=== PATIENT | female | born 1985 | race Caucasian/White ===

== ENCOUNTER 2021-01-04 03:59 | Emergency (ER) | payer OTHER ==
[~2021-01-04] VITALS: Ht 157.5 cm; Wt 61.2 kg
[2021-01-04] MEDS ORDERED: BUPRENORPHINE HC2 MG SL (04:10)
== END 2021-01-04 04:50 | disposition home or self-care (01) ==
LOC: ED 03:59
DX: G44.309 Post-traumatic headache, unspecified, not intractable (principal); Z88.0 Allergy status to penicillin; Z79.899 Other long term (current) drug therapy
CPT/HCPCS: 70450; 99284-25

== ENCOUNTER 2021-01-19 19:31 | Emergency (ER) | payer OTHER ==
[~2021-01-19] VITALS: Ht 157.5 cm; Wt 5175.9 kg
[~2021-01-19 19:31] MED LIST: BUPRENORPHINE HC2 MG SL
--- OUTSIDE RECORDS SUMMARY | 2021-01-19 19:34 | XMS ---
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 [facility] has no Care Guidelines for this patient. [facility] (12 MO.) [facility] NOTE: Visits indicate total known visits. ED/UCC VISIT TRACKING (12 MO.) [facility] COMPLAINT: - POSS KIDNEY STONES 01/04/2021 04:01 [facility] TYPE: Emergency COMPLAINT: - ASSULATED DIAGNOSES: - Other [facility] (current) drug therapy - Post-traumatic headache, unspecified, not intractable - Headache, unspecified - Allergy status to penicillin INPATIENT VISIT TRACKING (12 MO.) No inpatient visits to display in this time frame [email or web address]
[2021-01-19] MEDS ORDERED: ZOFRAN4 MG PO (22:22)
[2021-01-19] MEDS ORDERED: CEPHALEXIN500 MG PO (22:22)
== END 2021-01-19 23:20 | disposition home or self-care (01) ==
LOC: ED 19:31
DX: N12 Tubulo-interstitial nephritis, not specified as acute or chronic (principal); Z88.0 Allergy status to penicillin
CPT/HCPCS: 74176; 80053; 81001; 83605; 84703; 85025; 87040; 96374; 96375; 99284-25; A9270; J0696; J2405; J7030

== ENCOUNTER 2023-04-30 02:27 | Emergency (ER) | payer OTHER ==
[~2023-04-30] VITALS: Ht 157.5 cm; Wt 51.7 kg
[~2023-04-30 02:27] MED LIST changes: +CEPHALEXIN500 MG PO; +ZOFRAN4 MG PO
[2023-04-30] MEDS ORDERED: OXYCODONE HCL5 MG PO (02:47)
[2023-04-30] MEDS ORDERED: IBUPROFEN 800 MG TAB PO ONE (03:15)
[2023-04-30 03:47] LABS: BASOPHILS 0.7 % (0-2); EOSINOPHILS 1.6 % (0-6); HEMATOCRIT 29.2 % (35.0-50.0); HEMOGLOBIN 9.4 g/dL (12.0-18.0); LYMPHOCYTES 17.4 % (24-44); MCH 23.1 (27-36); MCHC 32.4 g/dl (30-36); MCV 71.3 fl (81-99); MONOCYTES 8.2 % (0-12); NEUTROPHILS 72.1 % (39-80); PLATELET COUNT 203 K/uL (140-440); RBC 4.09 M/ul (4.3-5.7); RDW 18.2 (10.5-15.0)
[2023-04-30] MEDS ORDERED: DOXYCYCLINE HYCLATE 100 MG CAP PO ONE (04:00)
[2023-04-30 04:01] LABS: ALBUMIN 3.5 g/dL (3.4-5.0); ALBUMIN/GLOBULIN RATIO 0.8 (1.1-2.4); ANION GAP 12.6 (7-21); BILIRUBIN, TOTAL 0.2 ng/dL (0.2-1.0); BUN/CREATININE RATIO 27.77 (6.0-28.6); CALCIUM 8.8 mg/dL (8.5-10.1); CREATININE, SERUM 0.9 mg/dL (0.55-1.02); POTASSIUM 3.6 mmol/L (3.5-5.1); PROTEIN, TOTAL 7.9 g/dL (6.4-8.2)
[2023-04-30] MEDS ORDERED: LACTATED RINGER'S 1,000 ML IV ONE (04:15)
[2023-04-30] MEDS ORDERED: DOXYCYCLINE HYCLATE 100 MG HOME.PACK PO ONE (04:30)
[2023-04-30] MEDS ORDERED: IBU800 MG PO (05:12)
[2023-04-30] MEDS ORDERED: FEOSOL325 MG PO (05:12)
[2023-04-30 05:36] VITALS: BP 115/89
[2023-05-01 18:23] LABS: IRON BINDING CAPACITY TOTAL 466 ug/dL (240-450); IRON,SERUM OR PLASMA 20 ug/dL (28-170); TRANSFERRIN SATURATION 4 %sat (20-50)
== END 2023-04-30 05:36 | disposition home or self-care (01) ==
LOC: ED 02:27
PROVIDERS: Internal Medicine
DX: L03.115 Cellulitis of right lower limb (principal); S81.841A Puncture wound with foreign body, right lower leg, initial encounter; W34.00XA Accidental discharge from unspecified firearms or gun, initial encounter; Z88.0 Allergy status to penicillin; Z79.899 Other long term (current) drug therapy
CPT/HCPCS: 36415; 73560; 80053; 80307; 83550; 84550; 84703; 85025; 86140; 99283-25; A9270; J7121